=== PATIENT | female | born 1995 ===

== ENCOUNTER 2021-11-03 16:24 | Inpatient (IN) | payer BC ==
[2021-11-03] MEDS ORDERED: Sodium Chloride 0.9% 20 ML SDV IV PRN (16:51)
[2021-11-03] MEDS ORDERED: Butorphanol 1 MG/ML SDV IVPUSH PRN (16:51)
[2021-11-03] MEDS ORDERED: Lidocaine 1% 50 ML MDV INJECT PRN (16:51)
[2021-11-03] MEDS ORDERED: Tranexamic Acid 1,000 MG in Sodium Chloride 0.9% 100 ML IV PRN (16:51)
[2021-11-03] MEDS ORDERED: Methylergonovine 0.2 MG/1 ML Amp IM PRN (16:51)
[2021-11-03] MEDS ORDERED: Water For Irrigation,Sterile 1,000 ML Container IRR PRN (16:51)
[2021-11-03] MEDS ORDERED: Ondansetron 4 MG/2 ML SDV IVPUSH PRN (16:51)
[2021-11-03] MEDS ORDERED: Carboprost Tromethamine 250 MCG/1 ML Amp IM PRN (16:51)
[2021-11-03] MEDS ORDERED: Terbutaline 1 MG/ML SDV SUBCUT PRN (16:51)
[2021-11-03] MEDS ORDERED: Sodium Chloride 0.9% 2.5 ML Syringe FLUSH PRN (16:51)
[2021-11-03] MEDS ORDERED: Sodium Chloride 0.9% 10 ML Syringe FLUSH PRN (16:51)
[2021-11-03] MEDS ORDERED: Misoprostol 200 MCG Tab PO PRN (16:51)
[2021-11-03] MEDS ORDERED: Oxytocin/0.9 % Sodium Chloride 30 UNIT/500 ML BAG IV SCH ×2 (17:00)
[2021-11-03] MEDS ORDERED: Ampicillin 2 GM in Sodium Chloride 0.9% 100 ML IV ONE (17:00)
[2021-11-03] MEDS: Lactated Ringers 1,000 ML IV SCH (17:25)
[2021-11-03] MEDS: Misoprostol 25 MCG (1/4 of 100 MCG) Tab VAG PRN ×2 (17:32→21:41)
[2021-11-03] MEDS ORDERED: Labetalol 100 MG/20 ML MDV IVPUSH PRN (19:00)
[2021-11-03] MEDS ORDERED: ePHEDrine 50 MG/ML SDV IVPUSH PRN ×2 (19:43)
[2021-11-03] MEDS ORDERED: hydrOXYzine Pamoate 25 MG Cap PO PRN (19:44)
[2021-11-03] MEDS ORDERED: Ropivacaine in NACL,ISO-OSM/PF 800 MG in Premix Bag 1 BAG EPIDUR SCH ×2 (19:45)
[2021-11-03] MEDS: Ampicillin 1 GM in Sodium Chloride 0.9% 50 ML IV SCH (21:31)
[2021-11-04] MEDS: Ampicillin 1 GM in Sodium Chloride 0.9% 50 ML IV SCH ×4 (01:40→14:08)
[2021-11-04] MEDS: Lactated Ringers 1,000 ML IV SCH ×2 (07:57→12:35)
[2021-11-04] MEDS ORDERED: fentaNYL 100 MCG/2 ML SDV ONE (12:18)
[2021-11-04] MEDS ORDERED: Bisacodyl 10 MG Supp RECTAL PRN (16:33)
[2021-11-04] MEDS ORDERED: Witch Hazel Medicated Pads 40/Jar TOP PRN (16:33)
[2021-11-04] MEDS ORDERED: Ibuprofen 400 MG Tab PO PRN (16:33)
[2021-11-04] MEDS ORDERED: Ibuprofen 800 MG Tab PO PRN (16:33)
[2021-11-04] MEDS ORDERED: Acetaminophen 500 MG Tab PO PRN ×2 (16:33)
[2021-11-04] MEDS ORDERED: Benzocaine/Menthol 20%-0.5% Spray 78 GM Cannister TOP PRN (16:33)
[2021-11-04] MEDS ORDERED: Lanolin 100% Cream 7 GM Tube TOP PRN (16:33)
[2021-11-04] MEDS ORDERED: Tranexamic Acid 1,000 MG in Sodium Chloride 0.9% 100 ML IV PRN (16:33)
[2021-11-04] MEDS: Docusate Sodium 100 MG Cap PO PRN (19:59)
[2021-11-05] MEDS ORDERED: Acidophilus with Citrus Pectin/L.acidophilus Tab PO SCH (09:00)
[2021-11-05] MEDS ORDERED: Cholecalciferol (Vitamin D3) 25 MCG Tab PO SCH (09:00)
[2021-11-05] MEDS ORDERED: Prenatal Multivitamin with Calcium/Folic Acid/Iron Tab PO SCH (09:00)
[2021-11-05] MEDS: Docusate Sodium 100 MG Cap PO PRN (09:15)
== END 2021-11-05 18:20 | disposition home or self-care (01) | DRG 560 ==
LOC: MW.OBCHECK 16:24 → MW.OB 16:29 → MW.OBCHECK 16:55 → MW.OB 17:35 → OBSVTOIN 11-04 15:49 → MW.OB 11-04 21:04
PROVIDERS: ADMIT Obstetrics & Gynecology; ATTEND Obstetrics & Gynecology
PROC: 10E0XZZ Delivery of Products of Conception, External Approach (ICD-10-PCS; principal; 2021-11-04)
PROC: 10907ZC Drainage of Amniotic Fluid, Therapeutic from Products of Conception, Via Natural or Artificial Opening (ICD-10-PCS; 2021-11-04)
PROC: 0KQM0ZZ Repair Perineum Muscle, Open Approach (ICD-10-PCS; 2021-11-04)
PROC: 3E0P7VZ Introduction of Hormone into Female Reproductive, Via Natural or Artificial Opening (ICD-10-PCS; 2021-11-04)
PROC: 3E033VJ Introduction of Other Hormone into Peripheral Vein, Percutaneous Approach (ICD-10-PCS; 2021-11-04)
PROC: 3E0R3BZ Introduction of Anesthetic Agent into Spinal Canal, Percutaneous Approach (ICD-10-PCS; 2021-11-04)
PROC: 00HU33Z Insertion of Infusion Device into Spinal Canal, Percutaneous Approach (ICD-10-PCS; 2021-11-04)
PROC: 10H07YZ Insertion of Other Device into Products of Conception, Via Natural or Artificial Opening (ICD-10-PCS; 2021-11-04)
DX: O13.4 Gestational [pregnancy-induced] hypertension without significant proteinuria, complicating childbirth (principal); Z37.0 Single live birth; Z3A.38 38 weeks gestation of pregnancy; O99.824 Streptococcus B carrier state complicating childbirth; O70.1 Second degree perineal laceration during delivery; O69.81X0 Labor and delivery complicated by cord around neck, without compression, not applicable or unspecified; Z20.822 Contact with and (suspected) exposure to COVID-19
CPT/HCPCS: 36415; 59025; 59409; 82803; 85014; 85018; 85027; 86592; 86850; 86900; 86901; A9270-GY; J0290; J2590; J3010; J7120; U0002

== ENCOUNTER 2023-03-30 05:13 | Inpatient (IN) | payer BC ==
[2023-03-30] MEDS ORDERED: Sodium Chloride 0.9% 2.5 ML Syringe FLUSH PRN (05:32)
[2023-03-30] MEDS ORDERED: Lidocaine 1% 50 ML MDV INJECT PRN (05:32)
[2023-03-30] MEDS ORDERED: Tranexamic Acid IN NACL,ISO-OS 1,000 MG in Premix Bag 1 BAG IV PRN ×2 (05:32)
[2023-03-30] MEDS ORDERED: Water For Irrigation,Sterile 1,000 ML Container IRR PRN (05:32)
[2023-03-30] MEDS ORDERED: Methylergonovine 0.2 MG/1 ML Amp IM PRN (05:32)
[2023-03-30] MEDS ORDERED: Carboprost Tromethamine 250 MCG/1 mL Vial IM PRN (05:32)
[2023-03-30] MEDS ORDERED: Sodium Chloride 0.9% 20 ML SDV IV PRN (05:32)
[2023-03-30] MEDS ORDERED: Sodium Chloride 0.9% 10 ML Syringe FLUSH PRN (05:32)
[2023-03-30] MEDS ORDERED: Misoprostol 200 MCG Tab PO PRN (05:32)
[2023-03-30] MEDS ORDERED: Ondansetron 4 MG/2 ML SDV IVPUSH PRN (05:32)
[2023-03-30] MEDS ORDERED: Nalbuphine 10 MG/0.5 ML Syringe IVPUSH PRN (05:39)
[2023-03-30] MEDS ORDERED: Ampicillin 2 GM in Sodium Chloride 0.9% 100 ML IV ONE (06:00)
[2023-03-30] MEDS: Lactated Ringers 1,000 ML IV SCH (06:00)
[2023-03-30 06:31] LABS: HEMATOCRIT 34.8 % (37.0-47.0); HEMOGLOBIN 12.3 g/dL (12.0-16.0); MEAN CORPUSCULAR HEMOGLOBIN 30.9 pg (28.0-32.0); MEAN CORPUSCULAR HGB CONC 35.3 g/dL (32.0-36.0); MEAN CORPUSCULAR VOLUME 87.4 fL (83.0-99.0); MEAN PLATELET VOLUME 10.6 fL (9.4-12.3); PLATELET COUNT,PLT 160 K/uL (150-400); RED BLOOD CELL COUNT 3.98 M/uL (4.10-5.30); WHITE BLOOD CELL COUNT,WBC 10.28 K/uL (3.9-11.3)
[2023-03-30] MEDS ORDERED: ePHEDrine 50 MG/ML SDV IVPUSH PRN ×2 (10:00)
[2023-03-30] MEDS ORDERED: Oxytocin/0.9 % Sodium Chloride 30 UNIT/500 ML BAG IV SCH (10:00)
[2023-03-30] MEDS ORDERED: Ropivacaine HCl/PF 400 MG in Premix Bag 1 BAG EPIDUR SCH (10:00)
[2023-03-30] MEDS: Ampicillin 1 GM in Sodium Chloride 0.9% 50 ML IV SCH ×4 (10:16→22:01)
[2023-03-30] MEDS: Oxytocin/0.9 % Sodium Chloride 30 UNIT/500 ML BAG IV SCH (10:36)
[2023-03-30] MEDS ORDERED: Terbutaline 1 MG/ML SDV SUBCUT PRN (16:20)
[2023-03-30] MEDS ORDERED: Misoprostol 25 MCG (1/4 of 100 MCG) Tab VAG PRN ×2 (16:20)
[2023-03-31] MEDS: Ampicillin 1 GM in Sodium Chloride 0.9% 50 ML IV SCH ×2 (01:53→05:55)
[2023-03-31] MEDS: Lactated Ringers 1,000 ML IV SCH (04:05)
[2023-03-31] MEDS ORDERED: Dexmedetomidine 200 MCG/2 ML SDV ONE (04:06)
[2023-03-31] MEDS ORDERED: fentaNYL 100 MCG/2 ML SDV ONE (04:07)
[2023-03-31] MEDS: Phenylephrine HCl 0.5 MG/5 ML AMP IVPUSH PRN ×4 (04:43→06:02)
[2023-03-31] MEDS ORDERED: Witch Hazel Medicated Pads 40/Jar TOP PRN (07:41)
[2023-03-31] MEDS ORDERED: Bisacodyl 10 MG Supp RECTAL PRN (07:41)
[2023-03-31] MEDS ORDERED: Ibuprofen 800 MG Tab PO PRN (07:41)
[2023-03-31] MEDS ORDERED: Ibuprofen 400 MG Tab PO PRN (07:41)
[2023-03-31] MEDS ORDERED: Docusate Sodium 100 MG Cap PO PRN (07:41)
[2023-03-31] MEDS ORDERED: Acetaminophen 500 MG Tab PO PRN ×2 (07:41)
[2023-03-31] MEDS ORDERED: Lanolin 100% Cream 7 GM Tube TOP PRN (07:41)
[2023-03-31] MEDS ORDERED: Benzocaine/Menthol 20%-0.5% Spray 78 GM Cannister TOP PRN (07:41)
[2023-03-31] MEDS: Oxytocin/0.9 % Sodium Chloride 30 UNIT/500 ML BAG IV SCH (08:05)
[2023-04-01 06:21] LABS: HEMATOCRIT 35.5 % (37.0-47.0); HEMOGLOBIN 12.2 g/dL (12.0-16.0)
[2023-04-01 11:15] LABS: APPEARANCE,URINE CLEAR; BILIRUBIN,URINE NEGATIVE (NEGATIVE); COLOR,URINE YELLOW; GLUCOSE,URINE NEGATIVE (NEGATIVE); KETONES,URINE NEGATIVE (NEGATIVE); LEUKOCYTE ESTERASE,URINE NEGATIVE (NEGATIVE); NITRITE,URINE NEGATIVE (NEGATIVE); OCCULT BLOOD,URINE NEGATIVE (NEGATIVE); PH,URINE 6.5 (5.0-8.0); PROTEIN,URINE NEGATIVE (NEGATIVE); UROBILINOGEN,URINE 0.2 EU/dL (<2.0)
== END 2023-04-01 15:59 | disposition home or self-care (01) | DRG 560 ==
LOC: MW.OBCHECK 05:13 → MW.OB 05:14 → MW.OBCHECK 05:33 → OBSVTOIN 03-31 07:25 → MW.OB 03-31 12:58
PROVIDERS: ADMIT Obstetrics & Gynecology Obstetrics; ATTEND Obstetrics & Gynecology Obstetrics
PROC: 10E0XZZ Delivery of Products of Conception, External Approach (ICD-10-PCS; principal; 2023-03-31)
PROC: 3E0R3BZ Introduction of Anesthetic Agent into Spinal Canal, Percutaneous Approach (ICD-10-PCS; 2023-03-31)
PROC: 00HU33Z Insertion of Infusion Device into Spinal Canal, Percutaneous Approach (ICD-10-PCS; 2023-03-31)
DX: O14.94 Unspecified pre-eclampsia, complicating childbirth (principal); Z37.0 Single live birth; O69.81X0 Labor and delivery complicated by cord around neck, without compression, not applicable or unspecified; Z3A.39 39 weeks gestation of pregnancy; Z91.048 Other nonmedicinal substance allergy status
CPT/HCPCS: 01967; 36415; 51702; 59025; 59409; 81003; 85014; 85018; 85027; 86592; 86850; 86900; 86901; J0290; J2371; J2590; J3010; J3490; J7120